=== PATIENT | male | born 1970 ===

== ENCOUNTER 2020-07-16 07:57 | Outpatient (CLI) | payer OTHER, SELFPAY ==
--- NOTE | ~2020-07-16 | XR_ITS ---
XR elbow RT 2V DATE: 07/16/2020 08:24 INDICATION: Right elbow pain for 30 years TECHNIQUE: AP and lateral views COMPARISON: None FINDINGS: No fracture or dislocation or joint effusion. No periosteal reaction or bone destruction. A 1 mm opaque density overlies the mid elbow joint on the AP view; small intra-articular loose body i s not excluded. IMPRESSION: Cannot exclude 1 mm radiopaque intra-articular loose body; otherwise negative Reviewed, dictated and finalized at location A. IMPRESSION: Cannot exclude 1 mm radiopaque intra-articular loose body; otherwis e negative
--- NOTE | ~2020-07-16 | XR_ITS ---
EXAMINATION: XR foot LT 2V DATE: 07/16/2020 08:24 INDICATION: Chronic left foot pain TECHNIQUE: Dorsoplantar, two oblique and lateral views of the left foot were obtained. COMPARISON: None. FINDINGS: Alignment is normal. No fracture. Joint spaces are normal with tiny marginal osteophytes at the first metatarsophalangeal joint consistent with minimal osteoarthritis. Soft tissues are unremarkable. IMPRESSION: 1. 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 Reviewed, dictated and finalized at location B.
== END 2020-07-16 07:58 | disposition home or self-care (01) ==
LOC: CHSIMG 08:01
PROVIDERS: PCP Nurse Practitioner Family; Visit Provider Nurse Practitioner Family
DX: M25.521 Pain in right elbow (principal); G89.29 Other chronic pain; M79.672 Pain in left foot
CPT/HCPCS: 73070; 73620